=== PATIENT | female | born 1960 | race Caucasian/White ===

== ENCOUNTER 2020-10-30 22:14 | Emergency (ER) | payer MEDICARE, OTHER ==
[2020-10-31 00:53] LABS: HEMOGLOBIN 12.9 gm/dl (12.3-15.3); RED BLOOD COUNT 4.34 M/UL (4.00-5.10); WHITE BLOOD COUNT 12.4 K/UL (4.5-11.0)
[2020-10-31 01:10] LABS: BUN/CREATININE RATIO 40 (0-10)
[2020-10-31] MEDS ORDERED: LEVOFLOXACIN750 MG PO (01:19)
[2021-01-15] MEDS ORDERED: PREDNISONE10 MG PO (10:48)
[2021-01-16] MEDS ORDERED: PREDNISONE10 MG PO (07:58)
[2021-01-16] MEDS ORDERED: VENTOLIN HFA 66.7 GM PO (07:59)
== END 2020-10-31 01:23 | disposition home or self-care (01) ==
LOC: ER1 22:14
PROVIDERS: Physician Assistant Medical
DX: J44.1 Chronic obstructive pulmonary disease with (acute) exacerbation (principal); J20.9 Acute bronchitis, unspecified; J44.0 Chronic obstructive pulmonary disease with (acute) lower respiratory infection; J18.9 Pneumonia, unspecified organism; F17.210 Nicotine dependence, cigarettes, uncomplicated
CPT/HCPCS: 71045; 80053; 85025; 93005; 94664; 96372; 99285; J2930

== ENCOUNTER 2021-01-18 00:58 | Inpatient (IN) | payer MEDICARE, OTHER ==
[~2021-01-18] VITALS: Ht 157.5 cm; Wt 90.3 kg
[~2021-01-18 00:58] MED LIST: LEVOFLOXACIN750 MG PO; PREDNISONE10 MG PO; VENTOLIN HFA 66.7 GM PO
[2021-01-18 01:42] LABS: BUN/CREATININE RATIO 52 (0-10)
[2021-01-18 01:53] LABS: HEMOGLOBIN 12.3 gm/dl (12.3-15.3); RED BLOOD COUNT 4.14 M/UL (4.00-5.10); WHITE BLOOD COUNT 6.7 K/UL (4.5-11.0)
[2021-01-18] MEDS ORDERED: CITALOPRAM HBR20 MG PO (07:54)
[2021-01-18] MEDS ORDERED: IBUPROFEN800 MG PO (07:57)
[2021-01-18] MEDS ORDERED: BUPROPION HCL100 M1 PO (08:01)
[2021-01-18] MEDS ORDERED: LEVOTHYROXINE25 MCG PO (08:02)
[2021-01-18] MEDS ORDERED: MONTELUKAST SOD10 MG PO (08:03)
[2021-01-18] MEDS ORDERED: OMEPRAZOLE20 MG PO (08:04)
[2021-01-18] MEDS ORDERED: OMEPRAZOLE20 M1 PO (10:50)
[2021-01-18] MEDS ORDERED: LEVOCETIRIZINE D5 MG PO (10:51)
[2021-01-20 03:20] LABS: BUN/CREATININE RATIO 53 (0-10)
[2021-01-21] MEDS ORDERED: MEDROL4 MG PO (09:45)
[2021-01-21] MEDS ORDERED: HYDROCHLOROTHIA25 MG PO (09:45)
[2021-01-21] MEDS ORDERED: COZAAR 25MG TAB25 MG PO (09:47)
[2021-01-21] MEDS ORDERED: LEVOFLOXACIN500 MG PO (09:49)
[2021-01-21] MEDS ORDERED: COMBIVENT RESPIM4 GM INH (09:51)
== END 2021-01-21 12:34 | disposition home or self-care (01) | DRG 189 ==
LOC: ER1 00:58 → PROG CARE 02:41 → CDU 02:41 → PROG CARE 11:15
PROVIDERS: Family Medicine; ADMIT Internal Medicine
PROC: 5A09457 Assistance with Respiratory Ventilation, 24-96 Consecutive Hours, Continuous Positive Airway Pressure (ICD-10-PCS; principal; 2021-01-18)
DX: J96.21 Acute and chronic respiratory failure with hypoxia (principal); J44.1 Chronic obstructive pulmonary disease with (acute) exacerbation; J96.22 Acute and chronic respiratory failure with hypercapnia; J20.9 Acute bronchitis, unspecified; F17.210 Nicotine dependence, cigarettes, uncomplicated; M51.36 Other intervertebral disc degeneration, lumbar region; Z20.822 Contact with and (suspected) exposure to COVID-19; E03.9 Hypothyroidism, unspecified; F41.9 Anxiety disorder, unspecified; E66.01 Morbid (severe) obesity due to excess calories; Z99.81 Dependence on supplemental oxygen; Z98.51 Tubal ligation status; Z88.0 Allergy status to penicillin; Z83.6 Family history of other diseases of the respiratory system
CPT/HCPCS: 0240U; 36600; 71045; 71250; 80048; 80053; 82550; 82553; 82803; 83605; 83735; 83874; 83880; 84484; 85025; 87040; 93005; 94640; 94660; 94664; 94760; 99285; J1650; J1956; J2405; J2920; J2930

== ENCOUNTER 2021-03-12 20:37 | Emergency (ER) | payer MEDICARE, OTHER ==
[~2021-03-12 20:37] MED LIST changes: +BUPROPION HCL100 M1 PO; +CITALOPRAM HBR20 MG PO; +COMBIVENT RESPIM4 GM INH; +COZAAR 25MG TAB25 MG PO; +HYDROCHLOROTHIA25 MG PO; +IBUPROFEN800 MG PO; +LEVOCETIRIZINE D5 MG PO; +LEVOFLOXACIN500 MG PO; +LEVOTHYROXINE25 MCG PO; +MEDROL4 MG PO; +MONTELUKAST SOD10 MG PO; +OMEPRAZOLE20 M1 PO; +OMEPRAZOLE20 MG PO
[2021-03-12 22:10] LABS: HEMOGLOBIN 10.9 gm/dl (12.3-15.3); RED BLOOD COUNT 3.58 M/UL (4.00-5.10); WHITE BLOOD COUNT 11.1 K/UL (4.5-11.0)
[2021-03-12 22:58] LABS: BUN/CREATININE RATIO 14 (0-10)
[2021-03-14 08:13] LABS: HBSAG SCREEN Negative (Negative); HEP A AB, IGM Negative (Negative); HEP B CORE AB, IGM Negative (Negative); HEP C VIRUS AB <0.1 (0.0-0.9)
== END 2021-03-13 05:00 | disposition short-term general hospital (02) ==
LOC: ER1 20:37
PROVIDERS: Physician Assistant
DX: K80.20 Calculus of gallbladder without cholecystitis without obstruction (principal); R17 Unspecified jaundice; J44.9 Chronic obstructive pulmonary disease, unspecified; F17.210 Nicotine dependence, cigarettes, uncomplicated; Z88.0 Allergy status to penicillin; Z20.822 Contact with and (suspected) exposure to COVID-19
CPT/HCPCS: 80053; 80074; 80307; 81001; 82140; 83690; 85025; 85610; 87086; 96374; 96375; 99285; G0480; J0696; Q9967; U0002

== ENCOUNTER 2021-03-19 14:55 | Emergency (ER) | payer MEDICARE, OTHER ==
[2021-03-19 16:15] LABS: HEMOGLOBIN 11.1 gm/dl (12.3-15.3); RED BLOOD COUNT 3.55 M/UL (4.00-5.10); WHITE BLOOD COUNT 16.2 K/UL (4.5-11.0)
[2021-03-19 16:51] LABS: BUN/CREATININE RATIO 18 (0-10)
[2021-03-19] MEDS ORDERED: LEVOFLOXACIN750 MG PO (20:28)
== END 2021-03-19 22:19 | disposition home or self-care (01) ==
LOC: ER1 14:55
PROVIDERS: Physician Assistant
DX: L03.311 Cellulitis of abdominal wall (principal); J44.9 Chronic obstructive pulmonary disease, unspecified
CPT/HCPCS: 80053; 85025; 87070; 87077; 87186; 87205; 96365; 99284; J1956; Q9967

== ENCOUNTER 2021-10-02 16:40 | Inpatient (IN) | payer MEDICARE, OTHER ==
[~2021-10-02] VITALS: Ht 157.5 cm; Wt 86.4 kg
[~2021-10-02 16:40] MED LIST changes: -VENTOLIN HFA 66.7 GM PO
[2021-10-02 18:02] LABS: HEMOGLOBIN 12.5 gm/dl (12.3-15.3); RED BLOOD COUNT 4.22 M/UL (4.00-5.10); WHITE BLOOD COUNT 8.5 K/UL (4.5-11.0)
[2021-10-02 18:36] LABS: BUN/CREATININE RATIO 27 (0-10)
--- NOTE | 2021-10-03 01:18 | NUR ---
PATIENT STATES THAT SHE HAS NOT TAKEN ANY OF HER HOME MEDICATIONS IN SEVERAL MONTHS.
[2021-10-03 02:42] LABS: HEMOGLOBIN 11.9 gm/dl (12.3-15.3); RED BLOOD COUNT 4.03 M/UL (4.00-5.10); WHITE BLOOD COUNT 6.9 K/UL (4.5-11.0)
[2021-10-03 03:26] LABS: BUN/CREATININE RATIO 30 (0-10)
[2021-10-03] MEDS ORDERED: PROAIR HFA8.5 GM INH (07:59)
[2021-10-03] MEDS ORDERED: FLONASE 0.05% N16 GM (09:26)
[2021-10-03] MEDS ORDERED: IBU600 MG PO (09:27)
[2021-10-03] MEDS ORDERED: ALBUTEROL2.5 MG/3 M INH (09:27)
[2021-10-03] MEDS ORDERED: BROVANA15 MCG/2 M INH (09:28)
[2021-10-03] MEDS ORDERED: BUDESONIDE0.5 MG/2 M INH (09:33)
[2021-10-03] MEDS ORDERED: DOXYCYCLINE HY100 MG PO (10:46)
[2021-10-03] MEDS ORDERED: MEDROL TAB 4 MG4 MG PO (10:46)
== END 2021-10-03 19:30 | disposition home or self-care (01) | DRG 177 ==
LOC: ER1 16:40 → CDU 19:26 → PROG CARE 19:26
PROVIDERS: Physician Assistant; ADMIT Internal Medicine
PROC: 8E0ZXY6 Isolation (ICD-10-PCS; principal; 2021-10-02)
PROC: 5A09357 Assistance with Respiratory Ventilation, Less than 24 Consecutive Hours, Continuous Positive Airway Pressure (ICD-10-PCS; 2021-10-02)
PROC: 3E0333Z Introduction of Anti-inflammatory into Peripheral Vein, Percutaneous Approach (ICD-10-PCS; 2021-10-02)
PROC: XW033E5 Introduction of Remdesivir Anti-infective into Peripheral Vein, Percutaneous Approach, New Technology Group 5 (ICD-10-PCS; 2021-10-02)
PROC: 3E03329 Introduction of Other Anti-infective into Peripheral Vein, Percutaneous Approach (ICD-10-PCS; 2021-10-02)
DX: U07.1 COVID-19 (principal); J96.21 Acute and chronic respiratory failure with hypoxia; J96.22 Acute and chronic respiratory failure with hypercapnia; J44.1 Chronic obstructive pulmonary disease with (acute) exacerbation; F17.210 Nicotine dependence, cigarettes, uncomplicated; E66.01 Morbid (severe) obesity due to excess calories; M19.91 Primary osteoarthritis, unspecified site; F41.9 Anxiety disorder, unspecified; E03.9 Hypothyroidism, unspecified; Z79.52 Long term (current) use of systemic steroids; Z98.51 Tubal ligation status; Z88.0 Allergy status to penicillin; Z99.81 Dependence on supplemental oxygen; Z83.6 Family history of other diseases of the respiratory system; Z68.34 Body mass index [BMI] 34.0-34.9, adult; Z79.899 Other long term (current) drug therapy
CPT/HCPCS: 36415; 36600; 71045; 80053; 82550; 82553; 82803; 83880; 84484; 85025; 85027; 86140; 93005; 94640; 94660; 94664; 94760; 96372; 99285; J0248; J1100; J1650; J7030; U0002